=== PATIENT | male | born 1990 | race Caucasian/White ===

== ENCOUNTER 2024-09-10 04:13 | Emergency (ER) | payer OTHER ==
[2024-09-10 04:18] VITALS: BP 159/89; PULSE 88; RESP 18; TEMP 97.9; BMI 33.7
[2024-09-10] MEDS ORDERED: LIDOCAINE 5% TOPICAL PATCH ONE (05:16)
[2024-09-10] MEDS: LIDOCAINE 5% TOPICAL PATCH TP ONE (05:22)
[2024-09-10] MEDS ORDERED: METHOCARBAMOL 500 MG TABLET ONE (06:05)
[2024-09-10] MEDS: METHOCARBAMOL 500 MG TABLET PO ONE (06:07)
[2024-09-10] MEDS ORDERED: LIDOCAINE PATCH REMOVAL MC SCH (22:00)
== END 2024-09-10 06:36 | disposition home or self-care (01) ==
LOC: JER 04:13
DX: M25.551 Pain in right hip (principal); M54.50 Low back pain, unspecified; R10.9 Unspecified abdominal pain; W11.XXXA Fall on and from ladder, initial encounter
CPT/HCPCS: 73502-TC-RT-FY; 99283-25